=== PATIENT | male | born 1995 | race Two or more races ===

== ENCOUNTER 2024-02-05 14:53 | Emergency (ER) | payer MEDICAID, SELFPAY ==
[2024-02-05 15:35] VITALS: BP 125/88; PULSE 78; RESP 18; TEMP 36.7; O2SAT 97; BMI 32.3
--- NOTE | 2024-02-05 15:52 | EDNOTE_ITS ---
Upper Extremity Injury RME/HPI General Chief Complaint: Extremity Injury, Upper Stated Complaint: splinters of unknown substance to hands bilateral Time Seen by Provider: 02/05/24 15:15 Source: patient Arrival date/time: 02/05/24 14:53 28-year-old male who presents to the emergency department with complaints of possible splinters to the palms of his fingers tip. 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 He did attempt to remove what ever he could at home however he states he still has some embedded. Denies any other concerns. Related Data Previous Rx's ?Medication ?Instructions ?Recorded mupirocin 2 % topical ointment 1 applic topical BID 7 days #22 02/05/24 grams Allergies Allergy/AdvReac Type Severity Reaction Status Date / Time No Known Allergies Allergy Mild Uncoded 07/06/07 11:58 Review of Systems Review of Systems Systems Reviewed: All systems reviewed, normal except as documented Narrative Review of Systems: Gen: No fever, no chills, no weight loss EYES: No discharge, no visual changes, no pain HEENT: No ear pain, no congestion, no sore throat PULM: No shortness of breath, no cough, no congestion CV: No chest pain, no dyspnea on exertion, no palpitations GI: No nausea, no vomiting, no diarrhea, no pain, no constipation : No frequency, no urgency,? no dysuria Musc/skel: No joint pain, no back pain Skin: Possible splinters to fingers Psyc: No hallucinations, no depression Heme/Lymph: No easy bleeding or bruising tendencies Neuro: No weakness, no headache ED Exam Narrative Physical exam: General: Sittiing in Exam table in no acute distress, answering questions appropriately HENT: normocephalic, atraumatic, EOMI, PERRLA, moist mucous membranes Chest: chest wall is nontender Cardiac: regular rate and rhythm, normal S1 and S2, no murmurs, rubs, or gallops, capillary refill ?2 seconds Pulmonary: clear to auscultation bilaterally, no wheezing, crackles, or rhonchi Abdominal: active bowel sounds, soft, nontender, nondistended Neuro: A&OX3, CN II-XII intact, sensation grossly intact bilaterally in UE and LE. Skin: no rashes, no ecchymosis Ext: no lower extremity edema, no visible splinters or foreign bodies noted to the palms or pulps to fingers. Course Quality Measures none Vital Signs Vital signs: Vital Signs Temperature 98.0 F 02/05/24 15:35 Pulse Rate 78 02/05/24 15:35 Respiratory Rate 18 02/05/24 15:35 Blood Pressure 125/88 H 02/05/24 15:35 Pulse Oximetry (%) 97 02/05/24 15:35 Oxygen Delivery Method Room Air 02/05/24 15:35 Extremity Injury MDM Narrative MDM Narrative:: There was no visible splinters or foreign bodies to fingers. Advised to wash hands immediately>, Neosporin to affected areas. Follow-up with PCP. Patient data External records reviewed:: [facility] previous records Clinical information provided by:: patient Social determinants that could affect healthcare access:: none Patient has the following chronic illnesses:: no How is presenting disease/condition affected by chronic disease/condition?: no chronic disease Evaluation data The following diagnostics were reviewed and interpreted by me:: other (specify) Lab and/or radiology exams considered but not ordered:: no Interpretation Summary: n/a Medications / Prescriptions Medications or Prescriptions considered but not ordered:: no Medication administrations:: no Consultations Consultation(s) initiated? (list below): No Diagnosis Upper Extremity Injury Differential Diagnosis: other (splinter to hands) Most likely diagnosis given after review of the tests above:: splinter to hands Admission Indicated Admission indicated?: not indicated Admission Request Was there a request for admission?: No Disposition Plan Disposition Plan: Discharge Discharge Attestation Discharge Attestation: The patient and all family members were given an opportunity to ask questions and understood the discharge instructions. Discharge instructions specifically effects, indications for sooner follow up or return to the emergency department, and the expected course of current diagnosis. Patient condition: Stable Discharge Plan Plan Patient Disposition: HOME (Self Care) Patient condition on transfer: Stable Prescriptions/Referrals Prescriptions/Med Rec: New mupirocin 2 % ointment 1 applic topical BID 7 Days Qty: 22 0RF Problem List Clinical Impression: Splinter of finger Patient/Caregiver Discharge Instructions Education Materials: ED Foreign Body Soft Tissue Additional Instructions: Unable to visualize splinters in your hand. Apply ointment as directed. Follow-up with your primary doctor as directed. Return to the emergency department with any worsening symptoms or change in condition. Print Language: [place] Stand Alone Forms: Tiffanie Award Info., Patient Portal Info Letter Vaccines Vaccines Given During Stay: Hepatitis B PA/TONGUE LINING STITCHER Supervising Physician PA/TONGUE LINING STITCHER Supervising Physician: Dr Gibson
== END 2024-02-05 16:36 | disposition home or self-care (01) ==
LOC: SERX 16:25
PROVIDERS: Emergency Provider Emergency Medicine; PCP Family Medicine
DX: S60.552A Superficial foreign body of left hand, initial encounter (principal); S60.551A Superficial foreign body of right hand, initial encounter; S60.459A Superficial foreign body of unspecified finger, initial encounter; W45.8XXA Other foreign body or object entering through skin, initial encounter
CPT/HCPCS: 99281